=== PATIENT | female | born 2000 | race Caucasian/White ===

== ENCOUNTER 2020-05-31 08:23 | Emergency (ER) | payer OTHER ==
[2020-05-31] MEDS ORDERED: Dexamethasone 10 MG/ML VIAL ONE (09:02)
[2020-05-31] MEDS ORDERED: Ondansetron PF 4 MG/2 ML Vial ONE (09:02)
[2020-05-31] MEDS ORDERED: Fentanyl 100 MCG/2 ML VIAL ONE ×2 (09:02→11:00)
[2020-05-31 09:17] LABS: BHCG - Serum Negative (NEGATIVE); Pregs Control Background? CLEAR/WHITE (CLR/WHITE); Pregs Control Bar Appear? YES (CONTROL BAR)
[2020-05-31 09:18] LABS: #Lymphocytes 1.6 thou/uL (1.20-3.40); #Monocytes 1.2 thou/uL (0.11-0.59); #Neutrophils 13.2 thou/uL (1.40-6.50); %Basophils 0.2 % (0.0-1.0); %Eosinophils 0.1 % (0.0-10.0); %Lymphocytes 10.3 % (28.0-48.0); %Monocytes 7.3 % (0.0-4.0); %Neutrophils 82.2 % (31.0-61.0); Hemoglobin 14.5 g/dL (12.0-16.0); Mean Corpuscular HGB CONC 35.8 g/dL (32.0-36.0); Mean Corpuscular Hemoglobin 33.4 pg (25.0-35.0); Mean Corpuscular Volume 93.2 fL (78.0-98.0); Mean Platelet Volume 7.5 fL (7.4-10.4); Platelet Count 186 thou/uL (130-400); RBC Distribution Width 11.1 % (11.5-14.5); Red Blood Cell (RBC) Count 4.34 mill/uL (4.00-5.20)
[2020-05-31 09:36] LABS: ALT (SGPT) 10 U/L (8-55); AST (SGOT) 15 U/L (5-30); Albumin 4.6 g/dL (3.5-5.0); Alkaline Phosphatase 79 U/L (40-100); Anion Gap 9 mmol/L (10-20); BUN (Urea Nitrogen) 10 mg/dL (8.4-21.0); Bilirubin, Total 1.4 mg/dL (0.2-1.2); Calc. Creatinine Clearance 0 mL/min (70-130); Calcium 9.4 mg/dL (7.8-10.44); Carbon Dioxide 29 mmol/L (22-29); Chloride 102 mmol/L (98-107); Estimated GFR-MDRD Greater than 90; Globulin 2.9 g/dL (2.4-3.5); Glucose 96 mg/dL (70-105); Protein, Total 7.5 g/dL (6.0-8.3); Sodium 136 mmol/L (136-145)
--- NOTE | 2020-05-31 10:23 | CT ---
CT neck soft tissues with contrast: 05/31/2020 HISTORY: 19-year-old female with odynophagia and sore throat. FINDINGS: Bilateral palatine tonsils are enlarged, right side asymmetrically worse than left. There is tiger st ripe pattern involving the right palatine tonsil. Adjacent right parapharyngeal space has edema encroaching on it. There is also hyperplasia with increased enhancement of the adenoids, and to a lesser degree the ling ual tonsil. There is edematous tissue involving the bilateral posterior pharyngeal wall directly posterior to the palatine tonsils. There is no organized, loculated rim-enhancing fluid collection to indicate either peritonsillar abscess or retropharyngeal abscess. There are reactive, heterogeneously enhancin g multiple bilateral cervical lymph nodes, including enlarged bilateral level 2A jugulodigastric nodes. There is a large number of minimally prominent, slightly increased enhancing bilateral level 2 , 3, 4, nodes. Larynx, including epiglottis, is normal. No major pathology involving some lingual, left parapharyngeal, bilateral parotid, bilateral submandibular, and security support analyst, spaces. No major opacification of maxillary, ethmoid, sphenoid, sinuses, or bilateral tympanomastoid cavities . IMPRESSION: 1.) Diffuse hyperplasia of Waldeyer's ring, especially the right palatine tonsil: Evidence for tonsil litis. 2) no evidence of abscess
[2020-05-31] MEDS ORDERED: Iopamidol-370 76% 500 ML 1 ML ONE (14:13)
== END 2020-05-31 11:22 | disposition home or self-care (01) ==
LOC: ERS 08:23
DX: J02.9 Acute pharyngitis, unspecified (principal)
CPT/HCPCS: 70491; 80053; 84703; 85025; 96361; 96374; 96375; 96376; J1100; J2405; J3010; Q9967